=== PATIENT | male | born 1985 ===

== ENCOUNTER 2020-06-16 19:56 | Emergency (ER) | payer BC ==
[~2020-06-16] VITALS: Ht 172.7 cm; Wt 79.4 kg
[2020-06-17] MEDS ORDERED: MEDROL DOSEPAK4 MG PO (00:06)
== END 2020-06-17 00:31 | disposition home or self-care (01) ==
LOC: ED 19:56
DX: R07.89 Other chest pain (principal); T39.315A Adverse effect of propionic acid derivatives, initial encounter; H57.89 Other specified disorders of eye and adnexa; Z88.0 Allergy status to penicillin; Z88.8 Allergy status to other drugs, medicaments and biological substances; Z91.013 Allergy to seafood; Y92.89 Other specified places as the place of occurrence of the external cause

== ENCOUNTER 2020-08-05 13:28 | Emergency (ER) | payer BC ==
[~2020-08-05] VITALS: Ht 167.6 cm; Wt 81.6 kg
[~2020-08-05 13:28] MED LIST: MEDROL DOSEPAK4 MG PO
[2020-08-05] MEDS ORDERED: NORVASC2.5 MG PO (14:03)
[2020-08-05] MEDS ORDERED: TYLENOL325 M1 PO (14:03)
[2020-08-05] MEDS ORDERED: MEDROL DOSEPAK4 MG PO (14:04)
== END 2020-08-05 14:14 | disposition home or self-care (01) ==
LOC: ED 13:28
DX: M77.11 Lateral epicondylitis, right elbow (principal); R03.0 Elevated blood-pressure reading, without diagnosis of hypertension; R51.9 Headache, unspecified; Z88.8 Allergy status to other drugs, medicaments and biological substances; Z91.013 Allergy to seafood